=== PATIENT | male | born 1960 | race Caucasian/White ===

== ENCOUNTER 2016-09-13 09:03 | Emergency (ER) ==
[2016-09-13 09:09] VITALS: TEMP 98.4; BMI 30.4
--- NOTE | 2016-09-13 09:17 | ED.PDOC ---
General ED Provider: Dr. MAYI WANG Chief Complaint: Back Pain Stated Complaint: Patient states that while lifting a lift gate (that the springs had failed ) at work his back gave out and started having severe pain. Pain is worse this morning and rates it at 8/10. Time Seen by Physician: 09:15 Mode of Arrival: Walk-In Information Source: Patient Exam Limitations: No limitations Primary Care Provider: NASRA HINES Nursing and Triage Documentation Reviewed and Agree: Yes Musculoskeletal Complaint Exam - Back Pain Complaint/Exam Mechanism of Injury: Reports: Trauma (from lifting) Onset/Duration: 1 day Symptoms Are: Still present Timing: Constant Initial Severity: Severe Current Severity: Severe Location: Reports: Diffuse Character: Reports: Aching, Throbbing, Spasmodic Aggravating: Reports: Movements, Lifting, Bending, Walking Alleviating: Reports: None Associated Signs and Symptoms: Reports: Flank pain. Denies: Abdominal pain Related History: Reports: Occupational injury. Denies: Similar episode, Previous back injury TAD Risk Factors: Reports: None AAA Risk Factors: Reports: None Cauda Equina Risk Factors: Reports: None Epidural Abcess Risk Factors: Reports: None Related Surgical History: Reports: None Focal Tenderness: No Paraspinal Muscle Tenderness: Yes Paraspinal Muscle Spasm: Yes Scoliosis: No Lordosis: No Kyphosis: No SLR Test: Right Positive, Left Positive Hip Motion Testing Pain: Right Negative, Left Negative Focal Weakness: Present: None Focal Sensory Loss: Present: None Gait: Present: Normal Back Picture: 1 - pain and spasms Differential Diagnoses: Herniated Disk, Strain, Sprain Review of Systems - Review Of Systems Constitutional: Reports: No symptoms Eyes: Reports: No symptoms Ears, Nose, Mouth, Throat: Reports: No symptoms Respiratory: Reports: No symptoms Cardiac: Reports: No symptoms GI: Reports: No symptoms : Reports: No symptoms Musculoskeletal: Reports: Back pain Skin: Reports: No symptoms Neurological: Reports: No symptoms Endocrine: Reports: No symptoms Hematologic/Lymphatic: Reports: No symptoms All Other Systems: Reviewed and Negative Past Medical History - Past Medical History Previously Healthy: Yes Endocrine: Reports: DM 2, Dyslipidemia Cardiovascular: Reports: Hypertension Respiratory: Reports: None Hematological: Reports: None Gastrointestinal: Reports: None Genitourinary: Reports: Kidney stones Neuro/Psych: Reports: None Musculoskeletal: Reports: None Cancer: Reports: None - Surgical History General Surgical History: Reports: None - Family History Family History: Reports: Diabetes - Social History Smoking Status: Never smoker Hx Substance Use: No Alcohol Screening: Occasionally Physical Exam - Physical Exam Appearance: Ill-appearing Ill-appearing: Mild Pain Distress: Severe Neck: Supple Respiratory: Airway patent, Breath sounds clear, Breath sounds equal, Respirations nonlabored Cardiovascular: RRR, Pulses normal, No rub, No murmur GI/: Soft, Nontender, No masses, Bowel sounds normal, No Organomegaly Musculoskeletal: Limited ROM Skin: Warm, Dry, Normal color Neurological: Sensation intact, Motor intact, Reflexes intact, Cranial nerves intact, Alert, Oriented Psychiatric: Anxious Interpretation - Radiology Interpretation Radiology Interpretation By: ED Physician Radiology Results: Negative Exam Interpreted: Other (lumber spine) Re-Evaluation - Re-Evaluation Time of Re-Evaluation: 10:12 Status: Improved Pain Level: 5 from 8 Critical Care Note - Critical Care Note Total Time (mins): 0 Course - Course Orders, Labs, Meds: Orders Category Date Time Status Ketorolac Tromethamine [Toradol] MEDS 09/13/16 09:25 Discontinued 60 mg IM ONCE STA Orphenadrine Citrate [Norflex] MEDS 09/13/16 09:25 Discontinued 60 mg IM ONCE STA LUMBAR SPINE, MIN 4 VIEWS Stat RADS 09/13/16 09:25 Completed Medications Discontinued Medications Generic Name Dose Route Start Last Admin Trade Name Bry PRN Reason Stop Dose Admin Ketorolac Tromethamine 60 mg 09/13/16 09:25 09/13/16 09:34 Toradol IM 09/13/16 09:26 60 mg ONCE STA Administration Orphenadrine Citrate 60 mg 09/13/16 09:25 09/13/16 09:36 Norflex IM 09/13/16 09:26 60 mg ONCE STA Administration Vital Signs: Temp Pulse Resp BP Pulse Ox 09/13/16 09:03 98.4 F 62 14 150/89 H 98 Departure - Departure Time of Disposition: 10:20 Disposition: HOME SELF-CARE Discharge Problem: Low back sprain Qualifiers: Encounter type: initial encounter Qualifier Code: (S33.9XXA) Sprain of unspecified parts of lumbar spine and pelvis, initial encounter Instructions: Lower Back Exercises (ED), Low Back Strain (ED) Condition: Fair Pt referred to PMD for follow-up: Yes Additional Instructions: Take medications as prescribed Follow up with PCP in 3 days Rest Prescriptions: Cyclobenzaprine HCl [Flexeril] 5 mg PO TID PRN #14 tablet PRN Reason: Spasms Ibuprofen [Motrin] 600 mg PO Q6H PRN #30 tablet PRN Reason: Analgesia Allergies/Adverse Reactions: Allergies No Known Allergies Allergy (Unverified 09/13/16 09:07) Home Medications: Ambulatory Orders Atorvastatin Calcium 20 mg PO DAILY 09/13/16 Cyclobenzaprine HCl [Flexeril] 5 mg PO TID PRN #14 tablet 09/13/16 Hum Insulin NPH/Reg Insulin Hm [Novolin 70-30 Insulin] 26 unit SUBCUT BID Ibuprofen [Motrin] 600 mg PO Q6H PRN #30 tablet 09/13/16 Irbesartan 300 mg PO DAILY 09/13/16 Metformin HCl 500 mg PO DAILY 09/13/16 Nebivolol HCl [Bystolic] 5 mg PO DAILY 09/13/16 Disposition Discussed With: Patient, Family
[2016-09-13] MEDS ORDERED: TORADOL IM STA (09:25)
[2016-09-13] MEDS ORDERED: NORFLEX IM STA (09:25)
--- NOTE | 2016-09-13 10:07 | DI ---
EXAM: Views of the lumbar spine HISTORY: Low back pain TECHNIQUE: AP lateral, coned-down lateral and oblique views of the lumbar spine were obtained. FINDINGS: The alignment is normal. There is no pars defect. There is no evidence of acute contreras lauren fracture. The intervertebral discs demonstrate normal height. There is facet joint arthropathy seen from the L4 down to the S1 level. IMPRESSION: No acute abnormalities are seen within the lumbar spine.
[2016-09-13 10:16] VITALS: BP 162/93
== END 2016-09-13 10:22 | disposition home or self-care (01) ==
LOC: ED 09:03
DX: S33.9XXA Sprain of unspecified parts of lumbar spine and pelvis, initial encounter (principal); X50.0XXA Overexertion from strenuous movement or load, initial encounter; Y99.0 Civilian activity done for income or pay
CPT/HCPCS: 96372; 99283